=== PATIENT | male | born 1965 | race Caucasian/White ===

== ENCOUNTER 2019-01-22 21:08 | Emergency (ER) | payer OTHER ==
[2019-01-22 21:24] VITALS: BP 133/71
[2019-01-22] MEDS ORDERED: predniSONE TAB* 20 MG PO ONE (21:43)
--- NOTE | 2019-01-22 21:51 | UC ---
Respiratory Complaint HPI - HPI Summary HPI Summary: Nonproductive cough over the past 2-1/2 weeks. He denies any fever. He is a nonsmoker. - History of Current Complaint Chief Complaint: UCRespiratory Stated Complaint: SORE THROAT/CONGESTION Time Seen by Provider: 01/22/19 21:09 Hx Obtained From: Patient Onset/Duration: Gradual Onset Timing: Intermittent Episodes Severity Initially: Mild Severity Currently: Mild Pain Intensity: 0 Character: Cough: Nonproductive Alleviating Factors: Nothing Associated Signs And Symptoms: Positive: Negative - Allergies/Home Medications Allergies/Adverse Reactions: Allergies Allergy/AdvReac Type Severity Reaction Status Date / Time No Known Allergies Allergy Verified 01/22/19 21:25 Home Medications: Home Medications Eucalyptus/Menthol [Cough Drops] 1 each MM SEE INSTRUCTIONS PRN 01/22/19 [ History Confirmed 01/22/19] PMH/Surg Hx/FS Hx/Imm Hx Previously Healthy: Yes - Surgical History Surgical History: Yes Surgery Procedure, Year, and Place: APPENDECTOMY, 2008, [facility]. DEVIATED SEPTUM, 1999, [facility] - Family History Known Family History: Positive: Non-Contributory - Social History Lives: With Family Alcohol Use: Weekly Alcohol Amount: 3 DRINKS A WEEK Substance Use Type: None Smoking Status (MU): Never Smoked Tobacco Have You Smoked in the Last Year: No Review of Systems All Other Systems Reviewed And Are Negative: Yes Respiratory: Positive: Cough - Nonproductive cough. Is Patient Immunocompromised?: No Physical Exam Triage Information Reviewed: Yes Appearance: Well-Appearing, No Pain Distress, Well-Nourished Vital Signs: Initial Vital Signs Temp 98.5 F 01/22/19 21:19 Pulse 80 01/22/19 21:19 Resp 16 01/22/19 21:19 BP 133/71 01/22/19 21:19 Pulse Ox 98 01/22/19 21:19 Vital Signs Reviewed: Yes Eyes: Positive: Conjunctiva Clear ENT: Positive: Hearing grossly normal, Pharynx normal, TMs normal, Uvula midline Neck: Positive: Supple, Nontender, No Lymphadenopathy Respiratory: Positive: Lungs clear, Normal breath sounds, No respiratory distress, No accessory muscle use Cardiovascular: Positive: RRR, No Murmur, Pulses Normal, Brisk Capillary Refill Musculoskeletal Exam: Normal Neurological Exam: Normal Psychological Exam: Normal Skin Exam: Normal Respiratory Course/Dx - Course Course Of Treatment: Patient was given a dose of prednisone 60 mg by mouth here and to continue on tapering prednisone. Follow-up with his primary care provider as needed. - Differential Dx/Diagnosis Provider Diagnosis: Bronchitis Discharge - Sign-Out/Discharge Documenting (check all that apply): Patient Departure All imaging exams completed and their final reports reviewed: No - Discharge Plan Condition: Fair Disposition: HOME Prescriptions: predniSONE [Prednisone 20 MG TAB] 20 mg PO DAILY 8 Days #16 tablet Patient Education Materials: Acute Bronchitis (ED) Referrals: Essence Henderson MD [Primary Care Provider] - Additional Instructions: Take the prednisone with food, follow-up with your primary care provider in 3 or 4 days if no improvement. - Billing Disposition and Condition Condition: FAIR Disposition: Home
--- NOTE | 2019-01-23 18:50 | UC ---
- Progress Note Progress Note: Radiologist reading of chest x-ray from January 22, 2019 comes back as no acute disease process. The provider for same date diagnosed bronchitis therefore there is no discrepancy. Course/Dx - Diagnoses Provider Diagnoses: Bronchitis Discharge - Sign-Out/Discharge Documenting (check all that apply): Patient Departure All imaging exams completed and their final reports reviewed: Yes - Discharge Plan Condition: Fair Disposition: HOME Prescriptions: predniSONE [Prednisone 20 MG TAB] 20 mg PO DAILY 8 Days #16 tablet Patient Education Materials: Acute Bronchitis (ED) Referrals: Essence Henderson MD [Primary Care Provider] - Additional Instructions: Take the prednisone with food, follow-up with your primary care provider in 3 or 4 days if no improvement. - Billing Disposition and Condition Condition: FAIR Disposition: Home
== END 2019-01-22 21:49 | disposition home or self-care (01) ==
LOC: UCCORT 21:08
DX: J40 Bronchitis, not specified as acute or chronic (principal)
CPT/HCPCS: 71046; 99212; G0463; J7512